=== PATIENT | female | born 1970 | race Caucasian/White ===

== ENCOUNTER → 2018-04-08 | Outpatient (CLI) | payer BC ==
[~2018-04-08] MED LIST: ATENOLOL PO; BACTRIM 400-801 EACH PO; CLONAZEPAM PO; DICLOFENAC; DICLOFENAC SODI75 MG PO; FLEXERIL PO; HYDROCODONE; SIMVASTATIN PO; TIZANIDINE HCL4 M1 PO; TRAMADOL
--- NOTE | 2018-04-08 13:37 | Diagnostic Imaging Report ---
Procedure: Thyroid nodule biopsies. Medications: 1% lidocaine. The patient's vital signs, including pulse oximetry, were continuously monitored by the interventional radiology nurse. Estimated blood loss: Minimal. Complications: No immediate. Procedure in detail: Informed consent for the procedure was obtained from the patient after discussion of risks and benefits. Patient has 3 separate nodules in the right thyroid lobe. 1% lidocaine was administered into the skin and subcutaneous tissues of the right lower neck for local anesthesia. Then, under continuous sonographic guidance, a 26-gauge needle was advanced into each of the thyroid nodules. Two FNA passes were made in each nodule. First biopsy was in the lower pole nodule, second biopsy in the midpole nodule and the third biopsy in the upper pole nodule. Specimens were evaluated by the Cytopathology Tech and the Pathologist who deemed the specimens adequate for diagnosis. Impression: Successful biopsy utilizing ultrasound guidance of 3 separate right thyroid nodules. Signed by: Dr. Philip Don DO on 04/08/2018 1:33 PM
== END ==
LOC: US 10:11
PROVIDERS: ATTEND Otolaryngology Otolaryngology/Facial Plastic Surgery
DX: E04.2 Nontoxic multinodular goiter (principal)
CPT/HCPCS: 10005; 10006; 88172; 88173